=== PATIENT | male | born 1935 | race Caucasian/White ===

== ENCOUNTER 2018-05-19 18:05 | Inpatient (IN) | payer MEDICARE ==
[~2018-05-19] VITALS: Ht 177.8 cm; Wt 72.1 kg
--- NOTE | ~2018-05-19 | PN ---
PATIENT:ÓSCAR MARMOLEJO MEDICAL RECORD: [id number] LOCATION:MARY Chen113 ADMISSION DATE: 05/19/18 PROGRESS NOTE DATE OF SERVICE: 05/24/2018 SUBJECTIVE: The patient's case was discussed with staff. He has no new complaint. OBJECTIVE: The patient is confused and a little angry, but not out of control. He has no thoughts of harming himself. He denies psychotic symptoms. ASSESSMENT: No change in diagnoses. PLAN: Current medicines have been reviewed and will be maintained. I anticipate the patient can be transitioned out of the hospital tomorrow. He certainly is demented enough to live in a intermediate and my recommendation is 11-qgwi-w-day supervision. His insists that she can provide this care and wants him to come home that is consistent with his wishes as well. TRANSINT:[id number] Voice Confirmation ID: [id number] DOCUMENT ID: [id number] VIKKI URBINA MD at 1223 CC: [id number] DICTATION DATE: 05/24/18 1518 PHARMACEUTICAL SALES: 05/24/18 1527 ADM IN [place] [id number] [place] [id number]
--- NOTE | ~2018-05-19 | DS ---
PATIENT:ÓSCAR MARMOLEJO :33 MEDICAL RECORD: [id number] DISCHARGE SUMMARY ADMISSION DATE: 05/19/18 DISCHARGE DATE: 05/25/18 IDENTIFYING DATA: The patient is 82 years old and he was admitted to the hospital on a voluntary basis because of confusion and agitation. The patient's brought him to the hospital Emergency Room for the second time in a week complaining that he was confused, agitated, and angry. The patient himself had little recognition of these behaviors. Apparently, he had been angry with his and she was afraid of him. About a week ago, she brought him to the Emergency Room with similar complaints, but he was found to have a urinary tract infection and was prescribed Cipro and sent home. HOSPITAL COURSE: The patient was admitted to the hospital and fully evaluated from both a medical, psychological, and social standpoint. 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 He was prescribed cholinesterase inhibiting medications and mood stabilizing medications and did show significant improvement. His came and visited with him. She was no longer afraid of him. It was recommended that she put him in a care home, but she did not want to do that and so she took him home. His long-term prognosis is guarded. Followup is to be with his primary care physician. TRANSINT:[id number] Voice Confirmation ID: [id number] DOCUMENT ID: [id number] VIKKI URBINA MD at 1406 CC: [id number] DICTATION DATE: 05/27/18 1138 CARDIOVASCULAR LAB DIRECTOR: 05/27/18 1224 DIS IN 05/25/18 [facility] [address] [place] [address]
--- NOTE | ~2018-05-19 | PN ---
PATIENT:ÓSCAR MARMOLEJO MEDICAL RECORD: [id number] LOCATION:MARY Metz ADMISSION DATE: 05/19/18 PROGRESS NOTE DATE OF SERVICE: 05/25/2018 SUBJECTIVE: The patient's case was discussed with staff. He has no new complaint. OBJECTIVE: The patient is severely impaired cognitively, but he is eating well and sleeping reasonably well. He shows no evidence of acute or direct aggressiveness. ASSESSMENT: No change in diagnoses. PLAN: The patient wants to go home and his wants him at home. He will be discharged today and his long-term prognosis is guarded. TRANSINT:[id number] Voice Confirmation ID: [id number] DOCUMENT ID: [id number] VIKKI URBINA MD at 1045 CC: [id number] DICTATION DATE: 05/25/18 1252 AUTOMOBILE REPOSSESSOR: 05/25/18 1301 DIS IN 05/25/18 [facility] [address] [place] [address]
--- NOTE | ~2018-05-19 | PN ---
PATIENT:ÓSCAR MARMOLEJO MEDICAL RECORD: [id number] LOCATION:MARY Metz ADMISSION DATE: 05/19/18 PROGRESS NOTE DATE OF SERVICE: 05/23/2018 SUBJECTIVE: The patient's case was discussed with staff. He has no new complaint. OBJECTIVE: The patient is much calmer today. He is much more redirectable. He still is easily confused about his circumstances. ASSESSMENT: No change in diagnoses. PLAN: Supportive and educational interventions were made. Long-term prognosis is guarded. TRANSINT:[id number] Voice Confirmation ID: [id number] DOCUMENT ID: [id number] VIKKI URBINA MD at 1322 CC: [id number] DICTATION DATE: 05/23/18 1211 DRYING ROOM ATTENDANT: 05/23/18 1223 ADM IN [place] [address] [place] [address]
--- NOTE | ~2018-05-19 | PSY ---
PATIENT NAME:ÓSCAR MARMOLEJO MEDICAL RECORD: [id number] : 33 LOCATION:MARY Chen1134 ADMISSION DATE: 05/19/18 ACCOUNT: [id number] PSYCHIATRIC EVALUATION DATE OF EVALUATION: 05/20/18 IDENTIFYING DATA: The patient is 82 years old and he is admitted to the hospital on a voluntary basis. CHIEF COMPLAINT: Confusion and agitation. HISTORY OF PRESENT ILLNESS: The patient's brought him to the Hospital Emergency Room for the second time in a week complaining that he is confused, agitated, and angry. The patient himself has little recognition of this. Apparently, he has been angry with his and she is afraid of him. About a week ago, when he was in the Emergency Room, he was found to have a urinary tract infection and was prescribed Cipro. When I visited with him today, he is calm and cooperative, but clearly very confused and has no recollection of the events that I am talking about. He also repeatedly asks me the same questions; and on a couple of occasions, they were back to back, meaning I answered the question and then he asked it again as soon as I answered it. He obviously has no short-term memory. PAST MEDICAL HISTORY: Significant for hypertension. The patient also apparently has a recently identified right upper lobe mass in his lung. I do not know what this is. I know it is being evaluated and I will leave that to the nonpsychiatric personnel who were looking at him. He says he only smoked cigarettes in his youth for few months, but he is a very unreliable historian. PAST PSYCHIATRIC HISTORY: Significant for a previous diagnosis of dementia, but he is not currently taking a cholinesterase inhibitor and I do not know if that is accurate history and certainly do not know the details about who diagnosed it, how it was diagnosed, or even when. FAMILY HISTORY: Significant for hypertension, but otherwise is unknown. SOCIAL HISTORY: The patient tells me that he never was a drinker. He was a brief smoker, which may or may not be correct. He denies any history of recreational drug use. He was to his first for many years, she has . They have 4 adult children, although he cannot remember where they are and what they do. He has been to his current for 4 years. 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 MENTAL STATUS EXAMINATION: The patient is awake; alert; and oriented to person, place, and somewhat to time and situation. His mood is euthymic. His affect is appropriate. Thought processes are circumstantial. Memory, concentration, and abstraction abilities are moderately impaired. He denies any active intent to harm himself or others as well as overt psychotic symptoms. ASSETS: Supportive family members. LIABILITIES: Limited insight. DIAGNOSTIC IMPRESSION: AXIS I: Senile dementia of the Alzheimer's type with behavioral disturbances. AXIS II: None. AXIS III: Urinary tract infection, hypertension, type 2 diabetes, hyperlipidemia, and right lung mass of uncertain etiology. AXIS IV: Moderate stressors. AXIS V: Global assessment of functioning is 30. PLAN: At this time, the patient will be admitted to the hospital for comprehensive medical, psychological, and social evaluation. He will be treated with both memory enhancing and mood stabilizing medications. It is unclear what level of care he is going to need and if that level of care can be met at home with his of 4 years. TRANSINT:[id number] Voice Confirmation ID: [id number] DOCUMENT ID: [id number] VIKKI URBINA MD at 1434 CC: [id number] DICTATION DATE: 05/20/18 1549 SLOPE TENDER: 05/20/18 1625 [facility] IN [place] [address] [place] [address]
--- NOTE | ~2018-05-19 | PN ---
PATIENT:ÓSCAR MARMOLEJO MEDICAL RECORD: [id number] LOCATION:MARY Metz ADMISSION DATE: 05/19/18 PROGRESS NOTE DATE OF SERVICE: 05/21/2018 SUBJECTIVE: The patient's case was discussed with staff. He has no new complaint. OBJECTIVE: The patient is in good behavioral control, but at times becomes quite agitated and confused. He required p.r.n. medication about 4 o'clock this morning. He also required additional p.r.n. medication this afternoon. ASSESSMENT: No change in diagnoses. PLAN: I am going to start the patient on a low dose of Seroquel twice daily to help with his thought disorganization. He will be monitored for clinical changes associated with its use. His long-term prognosis is guarded. TRANSINT:[id number] Voice Confirmation ID: [id number] DOCUMENT ID: [id number] VIKKI URBINA MD at 1301 CC: [id number] DICTATION DATE: 05/21/18 1501 SANITATION MANAGER: 05/21/18 1519 ADM IN [place] [id number] [place] [id number]
--- NOTE | ~2018-05-19 | PN ---
PATIENT:ÓSCAR MARMOLEJO MEDICAL RECORD: [id number] LOCATION:MARY Metz ADMISSION DATE: 05/19/18 PROGRESS NOTE DATE OF SERVICE: 05/22/2018 SUBJECTIVE: The patient's case was discussed with staff. He has no new complaint. OBJECTIVE: The patient is severely impaired cognitively. He is asking the same questions repeatedly and not making any sense. Today, he is under the impression that he came here to visit someone and now does not have a ride back to his home in [place]. When redirecting him, he understands what is said to him, but almost as soon as he acknowledges that he goes back and asks the same question again. He has not been aggressive today. More than likely he is as much related to the skill with which the staff handles him and redirect him as it is to some fundamental improvement in his underlying condition. ASSESSMENT: No change in diagnoses. PLAN: The patient will be treated with current medications. I am going to add a low dose of Aricept to assist with his thought disorganization and long-term decline. His of only 3 or 4 years wants to take him home and manage him. I do not think that is appropriate. She insists that she can handle him, but I do not think that it is going to work out. The patient in my view needs a secure environment with 42-dbfu-t-day supervision. The is not able to provide this. The situation does not rise to the level of reporting her to the state authorities, but it is highly unlikely to work out. TRANSINT:[id number] Voice Confirmation ID: [id number] DOCUMENT ID: [id number] VIKKI URBINA MD at 1053 CC: [id number] DICTATION DATE: 05/22/18 1446 RESTAURANT FLOOR MANAGER: 05/22/18 1518 ADM IN [place] [id number] [place] [address]
[2018-05-19] MEDS ORDERED: IPRATROPIUM BR21 MCG NASAL (18:34)
[2018-05-19] MEDS ORDERED: BENAZEPRIL HCL10 MG PO (18:34)
[2018-05-19] MEDS ORDERED: PEPCID AC20 MG PO (18:34)
[2018-05-19] MEDS ORDERED: CIPRO XR 5500 MG/BOT PO (18:35)
[2018-05-19] MEDS ORDERED: ULTRAM50 MG PO (18:35)
[2018-05-19 19:06] LABS: APPEARANCE CLOUDY (CLEAR); BILIRUBIN NEGATIVE (NEGATIVE); COLOR YELLOW (YELLOW); GLUCOSE NEGATIVE (NEGATIVE); KETONE NEGATIVE (NEGATIVE); NITRITE NEGATIVE (NEGATIVE); PROTEIN NEGATIVE (NEGATIVE); SPECIFIC GRAVITY 1.015 (1.005-1.020); UROBILINOGEN NORMAL (NORMAL)
[2018-05-19 19:08] LABS: BACTERIA MODERATE /hpf (NONE SEEN); EPITHELIAL CELLS 0-5 /hpf (0-5); RED CELLS - URINE 0-5 /hpf (0-5)
[2018-05-19 19:09] LABS: EOSINOPHILS 3.5 % (0-7); HEMATOCRIT 41.1 % (42.0-54.0); IMMATURE GRANULOCYTES 0.1 % (0-5); LYMPHOCYTES 35.1 % (15-50); MCH 33.7 pg (26.0-34.0); MCHC 34.1 g/dL (31.0-37.0); MEAN PLATELET VOLUME 10.9 fL (7.4-10.4); MONOCYTES 9.3 % (2-11); PLATELET COUNT 198 10x3/uL (130-400); RBC 4.15 10x6/uL (4.20-6.10); RDW 13.8 % (11.5-14.5); WBC 7.8 10x3/uL (4.8-10.8)
[2018-05-19 19:31] LABS: ALBUMIN 3.6 g/dL (3.4-5.0); ANION GAP 11.2 mmol/L (8-16); BILIRUBIN - TOTAL 0.38 mg/dL (0.2-1.3); CALCIUM 8.5 mg/dL (8.5-10.1); CARBON DIOXIDE 26.7 mmol/L (21.0-32.0); CREATININE - SERUM 1.4 mg/dL (0.6-1.3); POTASSIUM - SERUM 3.9 mmol/L (3.5-5.1); PROTEIN - SERUM 6.8 g/dL (6.4-8.2)
[2018-05-20 00:43] VITALS: BP 198/110; BMI 22.8
[2018-05-20 03:14] VITALS: BP 191/105
[2018-05-20 06:02] LABS: CHOL - HDL RATIO 4.2 ratio (2.3-4.9); LDL-HDL RATIO 2.7 ratio (1.5-3.5); THYROID STIMULATING HORMONE 1.45 uIU/mL (0.36-3.74)
[2018-05-20 09:47] VITALS: BP 163/110
[2018-05-20 13:46] VITALS: Ht 177.8 cm; Wt 72.1 kg
[2018-05-20 19:34] VITALS: BP 172/88
[2018-05-21 06:16] LABS: VITAMIN D 25 HYDROXY 26.4 ng/mL (30.0-100.0)
[2018-05-21 07:26] LABS: RAPID PLASMA REAGIN Non Reactive (Non Reactive)
[2018-05-21 08:00] VITALS: BP 155/83
[2018-05-21 22:08] VITALS: BP 165/83
[2018-05-22 09:00] VITALS: BP 148/77
[2018-05-22 19:06] VITALS: BP 148/23
[2018-05-23 10:35] VITALS: BP 151/64
[2018-05-23 22:38] VITALS: BP 134/64
[2018-05-24 10:25] VITALS: BP 174/98
[2018-05-24] MEDS ORDERED: LIPITOR10 MG PO (15:19)
[2018-05-24] MEDS ORDERED: LOPRESSOR25 MG PO (15:19)
[2018-05-24] MEDS ORDERED: ARICEPT5 MG PO (15:19)
[2018-05-24] MEDS ORDERED: SEROQUEL25 MG PO (15:20)
[2018-05-24] MEDS ORDERED: SENNA8.6 MG PO (15:20)
[2018-05-24] MEDS ORDERED: FLORAJEN3 CAPS460 MG PO (15:20)
[2018-05-24] MEDS ORDERED: VITAMIN D31000 UNI2 PO (15:21)
[2018-05-24] MEDS ORDERED: VITAMIN B-121000 MCG PO (15:21)
[2018-05-24 21:17] VITALS: BP 132/70
[2018-05-25 10:13] VITALS: BP 171/81
== END 2018-05-25 14:15 | disposition home or self-care (01) | DRG 57 ==
LOC: D.ER 18:05 → D.PSYCH 21:27
PROVIDERS: Emergency Medicine; Psychiatry & Neurology Psychiatry
DX: G30.1 Alzheimer's disease with late onset (principal); F02.81 Dementia in other diseases classified elsewhere, unspecified severity, with behavioral disturbance; N39.0 Urinary tract infection, site not specified; N17.9 Acute kidney failure, unspecified; E11.9 Type 2 diabetes mellitus without complications; E78.5 Hyperlipidemia, unspecified; R91.8 Other nonspecific abnormal finding of lung field; Z87.891 Personal history of nicotine dependence; K21.9 Gastro-esophageal reflux disease without esophagitis; J30.9 Allergic rhinitis, unspecified; K59.00 Constipation, unspecified

== ENCOUNTER 2018-06-21 18:08 | Emergency (ER) | payer MEDICARE ==
[~2018-06-21] VITALS: Ht 177.8 cm; Wt 84.1 kg
[~2018-06-21 18:08] MED LIST: ARICEPT5 MG PO; BENAZEPRIL HCL10 MG PO; CIPRO XR 5500 MG/BOT PO; FLORAJEN3 CAPS460 MG PO; IPRATROPIUM BR21 MCG NASAL; LIPITOR10 MG PO; LOPRESSOR25 MG PO; PEPCID AC20 MG PO; SENNA8.6 MG PO; SEROQUEL25 MG PO; ULTRAM50 MG PO; VITAMIN B-121000 MCG PO; VITAMIN D31000 UNI2 PO
[2018-06-21 18:13] VITALS: Ht 177.8 cm; Wt 84.1 kg
[2018-06-21 19:12] LABS: APPEARANCE HAZY (CLEAR); BILIRUBIN NEGATIVE (NEGATIVE); COLOR YELLOW (YELLOW); GLUCOSE NEGATIVE (NEGATIVE); KETONE NEGATIVE (NEGATIVE); NITRITE POSITIVE (NEGATIVE); PROTEIN NEGATIVE (NEGATIVE); SPECIFIC GRAVITY 1.015 (1.005-1.020); UROBILINOGEN NORMAL (NORMAL)
[2018-06-21 19:15] LABS: BACTERIA MODERATE /hpf (NONE SEEN); RED CELLS - URINE 0-5 /hpf (0-5)
[2018-06-21 19:52] LABS: BASOPHILS 0.6 % (0-2); EOSINOPHILS 2.2 % (0-7); HEMATOCRIT 42.3 % (42.0-54.0); HEMOGLOBIN 14.9 g/dL (13.5-17.5); IMMATURE GRANULOCYTES 0.3 % (0-5); LYMPHOCYTES 24.9 % (15-50); MCH 34.3 pg (26.0-34.0); MCHC 35.2 g/dL (31.0-37.0); MCV 97.2 fL (80.0-100.0); MEAN PLATELET VOLUME 10.6 fL (7.4-10.4); MONOCYTES 8.7 % (2-11); NEUTROPHILS 63.3 % (40-80); PLATELET COUNT 208 10x3/uL (130-400); RBC 4.35 10x6/uL (4.20-6.10); RDW 12.9 % (11.5-14.5); WBC 9.6 10x3/uL (4.8-10.8)
[2018-06-21 20:15] LABS: ALBUMIN 3.8 g/dL (3.4-5.0); ALKALINE PHOSPHATASE 82 U/L (46-116); ALT (SGPT) 17 U/L (10-68); BILIRUBIN - TOTAL 0.43 mg/dL (0.2-1.3); CALC OSMOLALITY 283 mosm/kg (275-300); CALCIUM 8.8 mg/dL (8.5-10.1); CARBON DIOXIDE 27.6 mmol/L (21.0-32.0); CHLORIDE - SERUM 103 mmol/L (98-107); GLUCOSE 126 mg/dL (74-106); POTASSIUM - SERUM 3.5 mmol/L (3.5-5.1); PROTEIN - SERUM 7.5 g/dL (6.4-8.2); SODIUM 139 mmol/L (136-145); UREA NITROGEN 23 mg/dL (7-18); eGFR NON AFRICAN AMERICAN 76 mL/min (90-120)
[2018-06-21 20:45] LABS: THYROID STIMULATING HORMONE 1.64 uIU/mL (0.36-3.74)
[2018-06-21 21:29] VITALS: BP 184/96
== END 2018-06-21 21:02 | disposition home or self-care (01) ==
LOC: D.ER 18:08
PROVIDERS: Family Medicine
DX: F03.90 Unspecified dementia, unspecified severity, without behavioral disturbance, psychotic disturbance, mood disturbance, and anxiety (principal); R41.89 Other symptoms and signs involving cognitive functions and awareness; F91.9 Conduct disorder, unspecified; I10 Essential (primary) hypertension; K21.9 Gastro-esophageal reflux disease without esophagitis

== ENCOUNTER 2018-07-09 09:12 | Inpatient (IN) | payer MEDICARE ==
[~2018-07-09] VITALS: Ht 167.6 cm; Wt 74.3 kg
--- NOTE | ~2018-07-09 | PN ---
PATIENT:ÓSCAR MARMOLEJO MEDICAL RECORD: [id number] LOCATION:MARY Morgan ADMISSION DATE: 07/09/18 PROGRESS NOTE DATE OF SERVICE: 07/13/2018 SUBJECTIVE: The patient's case was discussed with staff. He has no new complaint. OBJECTIVE: The patient denies intent to harm himself or others. He generally tolerates his medicines well. He was agitated yesterday and received p.r.n. medication for it. Today, he is calmer. He has no recollection of the event and he has not been combative here today. ASSESSMENT: No change in diagnoses. PLAN: Current medicines have been reviewed and will be maintained. Long-term prognosis is guarded. Supportive and educational interventions were made. TRANSINT:[id number] Voice Confirmation ID: [id number] DOCUMENT ID: [id number] VIKKI URBINA MD at 1054 CC: [id number] DICTATION DATE: 07/13/18 0947 SCHOOL CLERK: 07/13/18 1110 ADM IN [place] [id number] [place] [address]
--- NOTE | ~2018-07-09 | PN ---
PATIENT:ÓSCAR MARMOLEJO MEDICAL RECORD: [id number] LOCATION:MARY Morgan ADMISSION DATE: 07/09/18 PROGRESS NOTE DATE OF SERVICE: 07/26/2018 SUBJECTIVE: The patient's case was discussed with staff. He has no new complaint. OBJECTIVE: The patient denies intent to harm himself or others. He does tolerate his medicines well. He is quite impaired cognitively, but he has been in good behavioral control. He slept well last night and he is eating well. ASSESSMENT: No change in diagnoses. PLAN: The air ambulance is coming to pick him up this afternoon, he is going to be taken back to [place]. His long-term prognosis is guarded. TRANSINT:[id number] Voice Confirmation ID: [id number] DOCUMENT ID: [id number] VIKKI URBINA MD at 1043 CC: [id number] DICTATION DATE: 07/26/18 1014 FERRY TERMINAL AGENT: 07/26/18 1032 DIS IN 07/26/18 [facility] [address] [place] [address]
--- NOTE | ~2018-07-09 | PN ---
PATIENT:ÓSCAR MARMOLEJO MEDICAL RECORD: [id number] LOCATION:MARY ChenRiddhi ADMISSION DATE: 07/09/18 PROGRESS NOTE DATE OF SERVICE: 07/17/2018 SUBJECTIVE: The patient's case was discussed with staff. He has no new complaint. OBJECTIVE: The patient is in good behavioral control with limited insight about his condition. He does tolerate his medicines well. ASSESSMENT: No change in diagnoses. PLAN: Supportive and educational interventions were made. I am going to increase the patient's Klonopin slightly secondary to some agitated behavior. TRANSINT:[id number] Voice Confirmation ID: [id number] DOCUMENT ID: [id number] VIKKI URBINA MD at 1026 CC: [id number] DICTATION DATE: 07/17/18 1134 BATTERY TEST ENGINEER: 07/17/18 1149 ADM IN [place] [address] [place] [address]
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
--- NOTE | ~2018-07-09 | PN ---
PATIENT:ÓSCAR MARMOLEJO MEDICAL RECORD: [id number] LOCATION:MARY Chen112 ADMISSION DATE: 07/09/18 PROGRESS NOTE DATE OF SERVICE: 07/24/2018 SUBJECTIVE: The patient's case was discussed with staff. He has no new complaint. OBJECTIVE: The patient is in good behavioral control with limited insight about his condition. He does tolerate his medicines well. ASSESSMENT: No change in diagnoses. PLAN: Current medicines have been reviewed and will be maintained. The patient's long-term prognosis is guarded. I anticipate he can be transitioned out of the hospital soon. It is my understanding that his family is coming from [place] to get him on Sunday. TRANSINT:[id number] Voice Confirmation ID: [id number] DOCUMENT ID: [id number] VIKKI URBINA MD at 1254 CC: [id number] DICTATION DATE: 07/24/18 181 BOOK TRIMMER: 07/24/18 1909 ADM IN [facility] [address] [place] [address]
--- NOTE | ~2018-07-09 | PN ---
PATIENT:ÓSCAR MARMOLEJO MEDICAL RECORD: [id number] LOCATION:MARY Morgan ADMISSION DATE: 07/09/18 PROGRESS NOTE DATE OF SERVICE: 07/11/2018 SUBJECTIVE: The patient's case was discussed with staff. He has no new complaint. OBJECTIVE: The patient became quite confused this morning and was combative and agitated with staff. The situation was so bad that he received p.r.n. medication for the agitation. When asked about this today, he has no recollection of it. ASSESSMENT: No change in diagnoses. PLAN: The patient will have his Seroquel discontinued and will be started on a low dose of Trilafon. Trilafon will help with his thought disorganization and agitated behavior. His long-term prognosis is guarded. TRANSINT:[id number] Voice Confirmation ID: [id number] DOCUMENT ID: [id number] VIKKI URBINA MD at 1024 CC: [id number] DICTATION DATE: 07/11/18 1035 WAREHOUSE ANALYST: 07/11/18 1125 ADM IN [place] [id number] [place] [address]
--- NOTE | ~2018-07-09 | PN ---
PATIENT:ÓSCAR MARMOLEJO MEDICAL RECORD: [id number] LOCATION:MARY Morgan ADMISSION DATE: 07/09/18 PROGRESS NOTE DATE OF SERVICE: 07/23/2018 SUBJECTIVE: The patient's case was discussed with staff. He has no new complaint. OBJECTIVE: The patient denies intent to harm himself or others. He tolerates his medicines well. ASSESSMENT: No change in diagnoses. PLAN: Supportive and educational interventions were made. Long-term prognosis is guarded. It appears he may have a urinary tract infection. I am going to prescribe trazodone to assist with sleep consolidation, but we will leave the choice of antibiotics to the primary care physician. TRANSINT:[id number] Voice Confirmation ID: [id number] DOCUMENT ID: [id number] VIKKI URBINA MD at 1641 CC: [id number] DICTATION DATE: 07/23/18 0959 ITALIAN TEACHER: 07/23/18 1040 ADM IN [place] [id number] [place] [address]
--- NOTE | ~2018-07-09 | PN ---
PATIENT:ÓSCAR MARMOLEJO MEDICAL RECORD: [id number] LOCATION:MARY KimbleJoieRiddhi ADMISSION DATE: 07/09/18 PROGRESS NOTE DATE OF SERVICE: 07/18/2018 SUBJECTIVE: The patient's case was discussed with staff. He has no new complaint. OBJECTIVE: The patient remained significantly confused and agitated. He has very limited insight about his condition. He is tolerating his medicines well. He was up through much of the night. At that time, he was irritable and walking about confused. He did become so agitated that the night nurse had to give him a p.r.n. dose of Haldol and Ativan. ASSESSMENT: No change in diagnoses. PLAN: The patient is going to have his Klonopin increased to 0.5 mg twice daily. His long-term prognosis is guarded. TRANSINT:[id number] Voice Confirmation ID: [id number] DOCUMENT ID: [id number] VIKKI URBINA MD at 1212 CC: [id number] DICTATION DATE: 07/18/18 1058 SPOKE MAKER: 07/18/18 1106 ADM IN [place] [id number] [place] [address]
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
--- NOTE | ~2018-07-09 | PN ---
PATIENT:ÓSCAR MARMOLEJO MEDICAL RECORD: [id number] LOCATION:[facility] ADMISSION DATE: 07/09/18 PROGRESS NOTE DATE OF SERVICE: 07/16/2018 SUBJECTIVE: The patient's case was discussed with staff. He has no new complaint. OBJECTIVE: The patient is in good behavioral control with limited insight about his condition. He is sleeping a little better and has been a little less agitated. ASSESSMENT: No change in diagnoses. PLAN: Current medicines have been reviewed and will be maintained. His long-term prognosis is guarded. TRANSINT:[id number] Voice Confirmation ID: [id number] DOCUMENT ID: [id number] VIKKI URBINA MD at 0922 CC: [id number] DICTATION DATE: 07/16/18 1247 MIS SPECIALIST: 07/16/18 1251 ADM IN [facility] [address] [place] [address]
--- NOTE | ~2018-07-09 | PN ---
PATIENT:ÓSCAR MARMOLEJO MEDICAL RECORD: [id number] LOCATION:[facility] ADMISSION DATE: 07/09/18 PROGRESS NOTE DATE OF SERVICE: 07/21/2018 SUBJECTIVE: The patient's case was discussed with staff. He has no new complaint. OBJECTIVE: The patient denies intent to harm himself or others. He generally tolerates his medicines well. ASSESSMENT: No change in diagnoses. PLAN: Current medicines have been reviewed and will be maintained. Long-term prognosis is guarded. I will discuss with the treatment team tomorrow the plans to transition him to [place]. TRANSINT:[id number] Voice Confirmation ID: [id number] DOCUMENT ID: [id number] VIKKI URBINA MD at 0930 CC: [id number] DICTATION DATE: 07/21/18 1259 BOTTOM FILLER: 07/21/18 1455 ADM IN [place] [id number] [place] [id number]
--- NOTE | ~2018-07-09 | PN ---
PATIENT:ÓSCAR MARMOLEJO MEDICAL RECORD: [id number] LOCATION:[facility] ADMISSION DATE: 07/09/18 PROGRESS NOTE DATE OF SERVICE: 07/19/2018 SUBJECTIVE: The patient's case was discussed with staff. He has no new complaint. OBJECTIVE: The patient is in good behavioral control with limited insight about his condition. He is severely impaired cognitively, but has not been out of control today. ASSESSMENT: No change in diagnoses. PLAN: Current medicines and therapies have been reviewed and will be maintained. Long-term prognosis is guarded. TRANSINT:[id number] Voice Confirmation ID: [id number] DOCUMENT ID: [id number] VIKKI URBINA MD at 1421 CC: [id number] DICTATION DATE: 07/19/18 1241 AUTOMOBILE BRAKE BONDER: 07/19/18 1246 ADM IN [facility] [address] [place] [address]
--- NOTE | ~2018-07-09 | PN ---
PATIENT:ÓSCAR MARMOLEJO MEDICAL RECORD: [id number] LOCATION:[facility] ADMISSION DATE: 07/09/18 PROGRESS NOTE DATE OF SERVICE: 07/25/2018 SUBJECTIVE: The patient's case was discussed with staff. He has no new complaint. OBJECTIVE: The patient is in good behavioral control. He is severely impaired cognitively, but has not been aggressive today. ASSESSMENT: No change in diagnoses. PLAN: Current medicines have been reviewed and will be maintained. Long-term prognosis is guarded. TRANSINT:[id number] Voice Confirmation ID: [id number] DOCUMENT ID: [id number] VIKKI URBINA MD at 0954 CC: [id number] DICTATION DATE: 07/25/18 1321 RESEARCH SUPPORT SPECIALIST: 07/25/18 1331 ADM IN [place] [id number] [place] [address]
--- NOTE | ~2018-07-09 | PN ---
PATIENT:ÓSCAR MARMOLEJO MEDICAL RECORD: [id number] LOCATION:[facility] ADMISSION DATE: 07/09/18 PROGRESS NOTE DATE OF SERVICE: 07/15/2018 SUBJECTIVE: The patient's case was discussed with staff. He has no new complaint. OBJECTIVE: The patient denies intent to harm himself or others. He was fairly agitated yesterday, beating on the glass, trying to get out of the building, quite confused. ASSESSMENT: No change in diagnoses. PLAN: Current medicines have been reviewed and will be maintained. Long-term prognosis is guarded. TRANSINT:[id number] Voice Confirmation ID: [id number] DOCUMENT ID: [id number] VIKKI URBINA MD at 1223 CC: [id number] DICTATION DATE: 07/15/18 1457 TEST ARCHITECT: 07/15/18 1652 ADM IN [facility] [address] [place] [address]
--- NOTE | ~2018-07-09 | PN ---
PATIENT:ÓSCAR MARMOLEJO MEDICAL RECORD: [id number] LOCATION:[facility] ADMISSION DATE: 07/09/18 PROGRESS NOTE DATE OF SERVICE: 07/14/2018 SUBJECTIVE: The patient's case was discussed with staff. He has no new complaint. OBJECTIVE: The patient easily is upset and agitated. He has pretty limited insight about his condition. He does tolerate his medicines well, but he continues to have difficulty in the evening and is requiring p.r.n. Haldol and Ativan because of the agitation. ASSESSMENT: No change in diagnoses. PLAN: The patient is going to be started on a low dose of Klonopin 0.25 mg daily. His long-term prognosis is guarded. TRANSINT:[id number] Voice Confirmation ID: [id number] DOCUMENT ID: [id number] VIKKI URBINA MD at 1417 CC: [id number] DICTATION DATE: 07/14/18 1118 CONSULTING PROPERTY MANAGER: 07/14/18 1302 ADM IN [place] [id number] [place] [address]
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
--- NOTE | ~2018-07-09 | PN ---
PATIENT:ÓSCAR MARMOLEJO MEDICAL RECORD: [id number] LOCATION:[facility] ADMISSION DATE: 07/09/18 PROGRESS NOTE DATE OF SERVICE: 07/12/2018 SUBJECTIVE: The patient's case was discussed with staff. He has no new complaint. OBJECTIVE: The patient denies intent to harm himself or others. He generally tolerates his medicines well. Eye contact is fair. ASSESSMENT: No change in diagnoses. PLAN: The patient had a great deal of agitation last night even though he is just calm and confused this morning. He required 2 doses of p.r.n. medications because of combative, cursing, yelling, and threatening behavior toward the staff. At this point, I think that it is going to take more than Trilafon to manage these behaviors and I have discontinued it and we will start him on a low dose of Geodon, which I will titrate upward. I have considered the relative risks and benefit and looking at the overall situation, I think the medication is in his best interest. TRANSINT:[id number] Voice Confirmation ID: [id number] DOCUMENT ID: [id number] VIKKI URBINA MD at 0926 CC: [id number] DICTATION DATE: 07/12/18 1107 LEVELING MACHINE OPERATOR: 07/12/18 1142 ADM IN [place] [id number] [place] [address]
[2018-07-09 09:37] LABS: BASOPHILS 0.6 % (0-2); EOSINOPHILS 4.7 % (0-7); HEMATOCRIT 41.1 % (42.0-54.0); IMMATURE GRANULOCYTES 0.3 % (0-5); LYMPHOCYTES 32.5 % (15-50); MCH 33.7 pg (26.0-34.0); MCHC 34.1 g/dL (31.0-37.0); MEAN PLATELET VOLUME 11.1 fL (7.4-10.4); MONOCYTES 10.3 % (2-11); NEUTROPHILS 51.6 % (40-80); PLATELET COUNT 169 10x3/uL (130-400); RBC 4.15 10x6/uL (4.20-6.10); RDW 13.2 % (11.5-14.5); WBC 6.6 10x3/uL (4.8-10.8)
[2018-07-09 09:48] LABS: ALBUMIN 3.4 g/dL (3.4-5.0); ANION GAP 10.8 mmol/L (8-16); BILIRUBIN - TOTAL 0.56 mg/dL (0.2-1.3); CALCIUM 8.3 mg/dL (8.5-10.1); CARBON DIOXIDE 28.2 mmol/L (21.0-32.0); CREATININE - SERUM 1.2 mg/dL (0.6-1.3); PROTEIN - SERUM 6.5 g/dL (6.4-8.2)
[2018-07-09 09:50] LABS: UDS - AMPHET NEGATIVE QUAL (NEGATIVE); UDS - BARB NEGATIVE QUAL (NEGATIVE); UDS - BENZO NEGATIVE QUAL (NEGATIVE); UDS - COCAINE NEGATIVE QUAL (NEGATIVE); UDS - OPIATE NEGATIVE QUAL (NEGATIVE); UDS - PCP NEGATIVE QUAL (NEGATIVE); UDS - THC NEGATIVE QUAL (NEGATIVE)
[2018-07-09 10:08] LABS: APPEARANCE HAZY (CLEAR); BACTERIA FEW /hpf (NONE SEEN); BILIRUBIN NEGATIVE (NEGATIVE); COLOR YELLOW (YELLOW); EPITHELIAL CELLS 0-5 /hpf (0-5); GLUCOSE NEGATIVE (NEGATIVE); KETONE NEGATIVE (NEGATIVE); MUCUS <1+ /lpf (NONE SEEN); NITRITE NEGATIVE (NEGATIVE); PROTEIN NEGATIVE (NEGATIVE); SPECIFIC GRAVITY 1.025 (1.005-1.020); UROBILINOGEN NORMAL (NORMAL)
[2018-07-09 13:24] VITALS: BP 162/80; BMI 22.9
[2018-07-09] MEDS ORDERED: SEROQUEL25 MG PO (14:30)
[2018-07-09 16:28] LABS: LDL-HDL RATIO 2.3 ratio (1.5-3.5); THYROID STIMULATING HORMONE 1.49 uIU/mL (0.36-3.74)
[2018-07-09 20:51] VITALS: BP 155/82
[2018-07-10 06:17] LABS: RAPID PLASMA REAGIN Non Reactive (Non Reactive)
[2018-07-10 07:29] LABS: FOLATE (FOLIC ACID) - SERUM 10.3 ng/mL (>3.0); VITAMIN D 25 HYDROXY 32.9 ng/mL (30.0-100.0)
[2018-07-10 08:00] VITALS: BP 151/88
[2018-07-10 09:24] VITALS: Ht 167.6 cm; Wt 74.3 kg
[2018-07-10 19:00] VITALS: BP 161/74
[2018-07-10 21:07] VITALS: BP 161/74
[2018-07-11 08:51] VITALS: BP 178/102
[2018-07-11 19:25] VITALS: BP 178/102
[2018-07-11 20:06] VITALS: BP 169/91
[2018-07-12 10:05] VITALS: BP 170/81
[2018-07-12 20:10] VITALS: BP 127/60
[2018-07-13 09:15] VITALS: BP 152/76
[2018-07-14 08:00] VITALS: BP 155/77
[2018-07-14 19:54] VITALS: BP 168/86
[2018-07-15 07:00] VITALS: BP 158/86
[2018-07-15 20:21] VITALS: BP 127/57
[2018-07-16 20:15] VITALS: BP 144/73
[2018-07-17 14:37] VITALS: BP 138/78
[2018-07-17 20:34] VITALS: BP 131/69
[2018-07-18 12:15] VITALS: BP 167/87
[2018-07-18 20:32] VITALS: BP 156/84
[2018-07-19 10:25] VITALS: BP 136/70
[2018-07-19 20:02] VITALS: BP 200/100
[2018-07-19 20:21] VITALS: BP 132/65
[2018-07-20 09:31] VITALS: BP 197/86
[2018-07-20 19:32] VITALS: BP 109/50
[2018-07-21 08:05] VITALS: BP 129/65
[2018-07-21 20:00] VITALS: BP 134/60
[2018-07-22 10:10] VITALS: BP 167/69
[2018-07-22 20:39] VITALS: BP 166/80
[2018-07-23 09:30] VITALS: BP 153/79
[2018-07-23 19:31] VITALS: BP 126/63
[2018-07-24 09:18] VITALS: BP 151/79
[2018-07-24 19:49] VITALS: BP 167/73
[2018-07-25 10:12] VITALS: BP 116/68
[2018-07-25 21:12] VITALS: BP 111/48
[2018-07-26 09:11] VITALS: BP 141/90
== END 2018-07-26 15:30 | disposition home or self-care (01) | DRG 57 ==
LOC: D.ER 09:12 → D.PSYCH 11:59
PROVIDERS: Family Medicine
DX: G30.1 Alzheimer's disease with late onset (principal); F02.81 Dementia in other diseases classified elsewhere, unspecified severity, with behavioral disturbance; N17.9 Acute kidney failure, unspecified; N39.0 Urinary tract infection, site not specified; I10 Essential (primary) hypertension; E11.9 Type 2 diabetes mellitus without complications; E78.5 Hyperlipidemia, unspecified; R91.8 Other nonspecific abnormal finding of lung field; K21.9 Gastro-esophageal reflux disease without esophagitis; K59.00 Constipation, unspecified; E55.9 Vitamin D deficiency, unspecified; E53.8 Deficiency of other specified B group vitamins; B96.20 Unspecified Escherichia coli [E. coli] as the cause of diseases classified elsewhere; M19.90 Unspecified osteoarthritis, unspecified site